=== PATIENT | male | born 1950 | race Caucasian/White ===

== ENCOUNTER 2016-11-23 08:28 | Inpatient (IN) | payer BC ==
[~2016-11-23 08:28] MED LIST: Lactated Ringers 1,000 ML IV SCH; Lidocaine 1%/Sod Bicarbonate in NS 8.4% 1 ML Syringe PRN; Sodium Chloride 0.9% 10 ML Syringe FLUSH PRN
--- NOTE | 2016-11-23 09:34 | PCM.PREANE ---
Preanesthetic Assessment - Procedure Proposed Procedure: Right Total Hip Arthroplasty - Anesthesia/Transfusion/Family Hx Anesthesia History: Prior Anesthesia Without Reaction Family History of Anesthesia Reaction: No Transfusion History: No Prior Transfusion(s) Intubation History: Unknown - Review of Systems General: No Symptoms Pulmonary: Shortness of Breath (with activity like 2 flights of stairs, METS< 4) Cardiovascular: No Symptoms Gastrointestinal: No symptoms Neurological: Numbness (left foot ) Other: Reports: None (obesity ) - Physical Assessment O2 Sat by Pulse Oximetry: 95 Respiratory Rate: 20 Vital Signs: Last Vital Signs Temp 36.9 C 11/23/16 08:30 Pulse Resp 20 11/23/16 08:30 BP 161/81 H 11/23/16 08:30 Pulse Ox 95 11/23/16 08:30 Weight: 140.16 kg ASA Class: 3 Mental Status: Alert & Oriented x3 Airway Class: Mallampati = 3 Dentition: Reports: Missing Tooth/Teeth (no teeth upper, teeth on bottom secure ) Thyro-Mental Finger Breadths: 3 Mouth Opening Finger Breadths: 4 ROM/Head Extension: Full - Lab Values: Laboratory Last Values MRSA (PCR) Negative 11/11/16 15:45 - Allergies Allergies/Adverse Reactions: Allergies Allergy/AdvReac Type Severity Reaction Status Date / Time No Known Allergies Allergy Verified 11/23/16 09:30 - Blood Blood Available: Yes Product(s) Available: PRBC (type and screen drawn, not yet back ) - Acknowledgements Anesthesia Type Planned: Spinal Pt an Appropriate Candidate for the Planned Anesthesia: Yes Alternatives and Risks of Anesthesia Discussed w Pt/Guardian: Yes Pt/Guardian Understands and Agrees with Anesthesia Plan: Yes PreAnesthesia Questionnaire HEENT History: Reports: Impaired Vision Cardiovascular History: Reports: High Cholesterol, Hypertension Respiratory History: Reports: None Gastrointestinal History: Reports: Colon Polyp, Other (See Below) Other Gastrointestinal History: hematochezia Genitourinary History: Reports: Renal Calculus [employer]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 Musculoskeletal History: Reports: Other (See Below) Other Musculoskeletal History: R knee pain, gouty arthritis Neurological History: Reports: None Psychiatric History: Reports: None Endocrine/Metabolic History: Reports: Obesity/BMI 30+ Hematologic History: Reports: None Immunologic History: Reports: None Oncologic (Cancer) History: Reports: None Dermatologic History: Reports: None - Past Surgical History Head Surgeries/Procedures: Reports: None HEENT Surgical History: Reports: Cataract Surgery GI Surgical History: Reports: Colonoscopy Female Surgical History: Male Surgical History: Reports: Ureteral Stent, Vasectomy Neurological Surgical History: Reports: None Musculoskeletal Surgical History: Reports: Other (See Below) Other Musculoskeletal Surgeries/Procedures:: elbow surgery Dermatological Surgical History: Reports: None - SUBSTANCE USE Smoking Status *Q: Former Smoker Days Per Week of Alcohol Use: 7 Number of Drinks Per Day: 3 Total Drinks Per Week: 21 Recreational Drug Use History: No - HOME MEDS Home Medications: Home Meds Aspirin [Ecotrin] 81 mg PO DAILY 11/20/16 [History] Chlorthalidone [Chlorthalidone] 25 mg PO DAILY 11/20/16 [History] Enalapril [Vasotec] 10 mg PO DAILY 11/20/16 [History] Meloxicam [Meloxicam] 15 mg PO DAILY 11/20/16 [History] - CURRENT (IN HOUSE) MEDS Current Meds: Current Medications Bisacodyl (Dulcolax) 5 mg PO DAILY PRN PRN Reason: Constipation Morphine Sulfate 8 mg/Epinephrine HCl 0.3 mg/Cefuroxime Sodium 750 mg/Ketorolac Tromethamine 30 mg/Sodium Chloride 27.9 ml 0 mg .XX ONETIME ONE Stop: 11/23/16 10:01 Cyclobenzaprine HCl (Flexeril) 10 mg PO TID PRN PRN Reason: Spasms Docusate Sodium (Colace) 100 mg PO BID [facility] Famotidine (Pepcid) 20 mg PO BID [facility] Lactated Ringer's (Ringers, Lactated) 1,000 mls @ 125 mls/hr IV ASDIRECTED [facility] Stop: 11/23/16 23:00 Cefazolin Sodium/Dextrose 2 gm (/ Premix) 50 mls @ 100 mls/hr IV Q8H [facility] Stop: 11/23/16 23:59 Lidocaine/Sodium Bicarbonate (Buffered Lidocaine 1% In Ns 8.4%) 0.25 ml .XX ONETIME PRN PRN Reason: Prior to IV Start Stop: 11/23/16 16:00 Magnesium Hydroxide (Milk Of Magnesia) 30 ml PO BID PRN PRN Reason: Constipation Morphine Sulfate (Morphine) 2 mg IVPUSH Q2H PRN PRN Reason: Breakthrough Pain Multivitamins (Thera) 1 each PO WITHBREAKFAST [facility] Naloxone HCl (Narcan) 0.1 mg IVPUSH Q5M PRN PRN Reason: Oversedation Stop: 11/23/16 12:16 Ondansetron HCl (Zofran) 4 mg IVPUSH Q6H PRN PRN Reason: Nausea/Vomiting Oxycodone/Acetaminophen (Percocet 325-5 Mg) 1 - 2 tab PO Q4H PRN PRN Reason: Pain Senna (Senna) 8.6 mg PO BID PRN PRN Reason: Constipation Sodium Chloride (Saline Flush) 10 ml FLUSH ASDIRECTED PRN PRN Reason: Keep Vein Open Stop: 11/23/16 16:00
[2016-11-23] MEDS ORDERED: ceFAZolin 1 GM Vial ONE ×2 (09:51→10:00)
[2016-11-23] MEDS ORDERED: Iodine/Sodium Iodide 2% Tincture 30 ML Bottle ONE (09:51)
[2016-11-23] MEDS ORDERED: Bupivacaine 0.25% 30 ML SDV ONE (09:51)
[2016-11-23] MEDS ORDERED: Propofol 200 MG/20 ML SDV ONE ×6 (09:59→13:51)
[2016-11-23] MEDS ORDERED: Lidocaine 1% 4 ML ONE (10:00)
[2016-11-23] MEDS ORDERED: Morphine 8 MG, EPINEPHrine 0.3 MG, Cefuroxime 750 MG, Ketorolac 30 MG, Sodium Chloride ... ONE ×5 (10:00)
[2016-11-23] MEDS ORDERED: Midazolam 1 MG/ML 2 ML SDV ONE ×2 (10:03→11:41)
[2016-11-23] MEDS ORDERED: Morphine PF 10 MG/10 ML SDV ONE (10:04)
[2016-11-23] MEDS ORDERED: Morphine 10 MG/ML Syringe ONE (10:04)
[2016-11-23] MEDS ORDERED: Lactated Ringers 1,000 ML ONE ×3 (11:10→12:42)
[2016-11-23] MEDS ORDERED: Ketamine 500 mg/10 ML MDV ONE (11:22)
[2016-11-23] MEDS ORDERED: Sennosides 8.6 MG Tab PO PRN (12:00)
[2016-11-23] MEDS ORDERED: Naloxone 0.4 MG/ML SDV IVPUSH PRN (12:00)
[2016-11-23] MEDS ORDERED: Cyclobenzaprine 10 MG Tab PO PRN (12:00)
[2016-11-23] MEDS ORDERED: Magnesium Hydroxide 400 MG/5 ML Susp 30 ML Cup PO PRN (12:00)
[2016-11-23] MEDS ORDERED: Morphine 2 MG/ML Syringe IVPUSH PRN (12:00)
[2016-11-23] MEDS ORDERED: Bisacodyl 5 MG Tab PO PRN (12:00)
[2016-11-23] MEDS ORDERED: Phenylephrine/Normal Saline 100 MCG/ML 10 ML Syringe ONE (12:28)
--- NOTE | 2016-11-23 13:24 | PCM.CONS ---
H&P History of Present Illness - General Date of Service: 11/23/16 Admit Problem/Dx: Admission Diagnosis/Problem Admission Diagnosis/Problem Osteoarthritis of hip Source of Information: Patient, Family, Old Records, Provider, RN Notes Reviewed , Significant Other History Limitations: Reports: Physical Impairment - History of Present Illness Initial Comments - Free Text/Narative: This is a 66-year-old, white male, with past medical history of HTN, HLD, OA and Morbid Obesity who underwent right total knee arthroplasty post operative day zero. Patient is currently nauseous. His pain is controlled. He denies any other acute issues. Medicine was consulted for postoperative care. - Related Data Allergies/Adverse Reactions: Allergies Allergy/AdvReac Type Severity Reaction Status Date / Time No Known Allergies Allergy Verified 11/23/16 09:30 Home Medications: Home Meds Aspirin [Ecotrin] 81 mg PO DAILY 11/20/16 [History] Chlorthalidone [Chlorthalidone] 25 mg PO DAILY 11/20/16 [History] Enalapril [Vasotec] 10 mg PO DAILY 11/20/16 [History] Meloxicam [Meloxicam] 15 mg PO DAILY 11/20/16 [History] Past Medical History HEENT History: Reports: Impaired Vision Cardiovascular History: Reports: High Cholesterol, Hypertension Respiratory History: Reports: None Gastrointestinal History: Reports: Colon Polyp, Other (See Below) Other Gastrointestinal History: hematochezia Genitourinary History: Reports: Renal Calculus 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 Musculoskeletal History: Reports: Other (See Below) Other Musculoskeletal History: R knee pain, gouty arthritis Neurological History: Reports: None Psychiatric History: Reports: None Endocrine/Metabolic History: Reports: Obesity/BMI 30+ Hematologic History: Reports: None Immunologic History: Reports: None Oncologic (Cancer) History: Reports: None Dermatologic History: Reports: None - Past Surgical History Head Surgeries/Procedures: Reports: None HEENT Surgical History: Reports: Cataract Surgery GI Surgical History: Reports: Colonoscopy Female Surgical History: Male Surgical History: Reports: Ureteral Stent, Vasectomy Neurological Surgical History: Reports: None Musculoskeletal Surgical History: Reports: Other (See Below) Other Musculoskeletal Surgeries/Procedures:: elbow surgery Dermatological Surgical History: Reports: None Social & Family History - Tobacco Use Smoking Status *Q: Former Smoker Used Tobacco, but Quit: Yes Month Tobacco Last Used: 1994 - Caffeine Use Caffeine Use: Reports: Coffee - Alcohol Use Days Per Week of Alcohol Use: 7 Number of Drinks Per Day: 3 Total Drinks Per Week: 21 - Recreational Drug Use Recreational Drug Use: No H&P Review of Systems - Review of Systems: Review Of Systems: See Below General: Denies: Fever, Chills, Malaise, Weakness, Fatigue HEENT: Reports: No Symptoms Pulmonary: Denies: Shortness of Breath, Wheezing, Pleuritic Chest Pain Cardiovascular: Denies: Chest Pain, Dyspnea on Exertion Gastrointestinal: Reports: Nausea. Denies: Abdominal Pain, Vomiting Genitourinary: Reports: Retention Musculoskeletal: Reports: No Symptoms Skin: Denies: Cyanosis, Rash, Erythema Psychiatric: Denies: Confusion, Depression, Anxiety, Hallucinations Neurological: Reports: Difficulty Walking, Gait Disturbance. Denies: Confusion , Dizziness, Weakness Hematologic/Lymphatic: Reports: No Symptoms Immunologic: Reports: No Symptoms Exam - Exam Exam: See Below - Vital Signs Vital Signs: Last Vital Signs Temp 36.9 C 11/23/16 08:30 Pulse Resp 20 11/23/16 09:41 BP 161/81 H 11/23/16 08:30 Pulse Ox 95 11/23/16 09:41 Weight: 140.16 kg - Exam Quality Assessment: No: Supplemental Oxygen General: Alert, Oriented, Cooperative, Other (Obese). No: Mild Distress HEENT: Conjunctiva Clear, EACs Clear, EOMI, Hearing Intact, Mucosa Moist & Nucla , Nares Patent, Normal Nasal Septum, Posterior Pharynx Clear, Pupils Reactive Neck: Supple, Trachea Midline, +2 Carotid Pulse wo Bruit, Full Range of Motion, Other (Short and thick) Lungs: Clear to Auscultation, Normal Respiratory Effort Cardiovascular: Regular Rate, Regular Rhythm Abdomen: Normal Bowel Sounds, Soft. No: Organomegaly, Tenderness (Male) Exam: Other (indwelling holland catheter) Rectal (Males) Exam: Deferred Back Exam: Decreased Range of Motion Extremities: Normal Inspection, Normal Pulses Peripheral Pulses: 2+: Posterior Tibial (L), Posterior Tibial (R), Dorsalis Pedis (L), Dorsalis Pedis (R) Skin: Warm, Dry, Intact Neuro Extensive - Mental Status: Oriented x3, Normal Cognition, Memory Intact Neuro Extensive - Motor, Sensory, Reflexes: CN II-XII Intact (limited but fairly intact), Abnormal Gait Psychiatric: Alert, Normal Affect, Normal Mood - Patient Data Lab Results Last 24 hrs: Laboratory Results - last 24 hr 11/23/16 11/23/16 Range/Units 08:54 08:54 PT 10.1 (8.0-13.0) SECONDS INR 0.93 APTT 31 (22-36) SECONDS Consult PN Assessment/Plan POD#: 0 Problem List Initiated/Reviewed/Updated: Yes Plan: Assessment: Acute: Post-Operative Care State - Stable - Continue to monitor for hemodynamic instability S/p Right Total Knee Arthroplasty - Stable - DVT and Pain Management as per primary team Hx/o Chronic Hip Pain 2/2 OA - Pain Management as per primary team Post Operative Urinary Retention - Received 4L LR in OR, output < 200 ml so far - Bumex 1mg IVP X1 now - Monitor urine output per protocol Post-Operative Nausea/Vomiting - PRN Anti-emisis - Scopolamine Patch - Benadryl IVP to augment if no relief Chronic: HTN HLD Obesity with BMI 39.9 Plan: He is clinically stable Routine AM labs Continue home meds PT/OT consult IS q2 awake Thank you for the opportunity to participate in the management of this patient. Requesting Provider: Dr. Jaimes Date Consult Requested: 11/23/16 Reason for Consult: Post-Operative Care Patient History Reviewed: Yes Admission H&P Reviewed: Yes Consult Result/Summary: Stable
--- NOTE | 2016-11-23 14:32 | PCM.POSTAN ---
POST ANESTHESIA ASSESSMENT - MENTAL STATUS Mental Status: alert - VITAL SIGNS Pulse Rate: 74 SaO2: 96 Resp Rate: 14 Blood Pressure: 132/72 Temperature: 37.0 C - RESPIRATORY Respiratory Status: respiratory rate WNL, airway patent, O2 saturation stable - CARDIOVASCULAR CV Status: pulse rate WNL, blood pressure stable - GASTROINTESTINAL GI Status: no symptoms - PAIN Pain Score: 0 - POST OP HYDRATION Hydration Status: adequate & stable
[2016-11-23] MEDS ORDERED: diphenhydrAMINE 50 MG/ML SDV IVPUSH PRN (14:33)
[2016-11-23] MEDS: Ondansetron 4 MG/2 ML SDV IVPUSH PRN (15:46)
[2016-11-23] MEDS ORDERED: Bumetanide 1 MG/4 ML MDV IVPUSH ONE (15:49)
--- NOTE | 2016-11-23 16:23 | CR ---
Pelvis and right hip: AP view of the pelvis was obtained as well as lateral view of the right hip. Comparison: No previous study. Recently placed right hip prosthesis is seen. Soft tissue air is noted from the surgical procedure. Underlying bony structures are intact. Moderate joint space narrowing is seen within the left hip. Mild disc space narrowing is noted within the visualized lumbar spine. Sacroiliac joints are within normal limits. Impression: 1. Recently placed right hip prosthesis. Degenerative change is seen with the left hip and lumbar spine. Diagnostic code #3
[2016-11-23] MEDS ORDERED: Scopolamine 1.5 MG Transdermal Patch TOP ONE (16:47)
[2016-11-23] MEDS: ceFAZolin 2 GM in Premix Bag 1 BAG IV SCH (17:17)
[2016-11-24] MEDS: Famotidine 20 MG Tab PO SCH ×3 (00:26→21:22)
[2016-11-24] MEDS: Docusate Sodium 100 MG Cap PO SCH ×3 (00:26→21:23)
[2016-11-24] MEDS: ceFAZolin 2 GM in Premix Bag 1 BAG IV SCH ×2 (01:49→10:30)
[2016-11-24] MEDS: Acetaminophen/oxyCODONE 325-5 MG Tab PO PRN ×5 (01:50→21:23)
[2016-11-24] MEDS: Multivitamins,Therapeutic Tab PO SCH (06:08)
--- NOTE | 2016-11-24 08:01 | PCM.CONSN ---
- General Info Date of Service: 11/24/16 Admission Dx/Problem (Free Text): Admission Diagnosis/Problem Admission Diagnosis/Problem Osteoarthritis of hip Subjective Update: Follow Up Functional Status: Reports: tolerating diet, ambulating, urinating, new symptoms (had vasovagal episode this am). Denies: pain controlled Pain Score: 9 - Review of Systems General: Denies: Fever, Weakness, Fatigue, Malaise, Chills HEENT: Reports: no symptoms Pulmonary: Denies: shortness of breath Cardiovascular: Denies: Chest Pain Gastrointestinal: Denies: Abdominal pain, Nausea, Vomiting Genitourinary: Reports: no symptoms Musculoskeletal: Reports: neck pain Neurological: Reports: Difficulty Walking, Gait Disturbance. Denies: Confusion , Weakness Psychiatric: Denies: depression, anxiety, agitation, hallucinations Systems Review Comment:: Patient became unresponsive in front of his family this am. His was head bobbing and look bewildered. His he was found hypotensive. I was nearby when it happened and was able to tend to him right away. - Patient Data Vitals - most recent: Last Vital Signs Temp 36.6 C 11/23/16 19:53 Pulse 78 11/24/16 05:19 Resp 18 11/24/16 06:59 BP 149/74 H 11/24/16 05:19 Pulse Ox 99 11/24/16 05:19 Weight - most recent: 141.209 kg I&O - last 24 hours: Intake & Output 11/23/16 11/24/16 11/24/16 22:59 06:59 14:59 Intake Total 1300 500 Output Total 150 2050 Balance 1150 -1550 Lab Results last 24 hrs: Laboratory Results - last 24 hr 11/23/16 11/23/16 11/24/16 Range/Units 08:54 08:54 06:06 WBC 11.05 H (4.23-9.07) K/mm3 RBC 5.03 (4.63-6.08) M/mm3 Hgb 15.0 (13.7-17.5) gm/L Hct 44.3 (40.1-51.0) % MCV 88.1 (79.0-92.2) fl MCH 29.8 (25.7-32.2) pg MCHC 33.9 (32.2-35.5) g/dl RDW Std Deviation 42.7 (35.1-43.9) fL Plt Count 278 (163-337) K/mm3 MPV 10.0 (9.4-12.3) fl Neut % (Auto) 75.2 H (34.0-67.9) % Lymph % (Auto) 13.9 L (21.8-53.1) % Monroe % (Auto) 9.6 (5.3-12.2) % Eos % (Auto) 0.7 L (0.8-7.0) Baso % (Auto) 0.3 (0.1-1.2) % Neut # (Auto) 8.31 H (1.78-5.38) K/mm3 Lymph # (Auto) 1.54 (1.32-3.57) K/mm3 Monroe # (Auto) 1.06 H (0.30-0.82) K/mm3 Eos # (Auto) 0.08 (0.04-0.54) K/mm3 Baso # (Auto) 0.03 (0.01-0.08) K/mm3 PT 10.1 (8.0-13.0) SECONDS INR 0.93 APTT 31 (22-36) SECONDS Sodium (136-145) mEq/L Potassium (3.5-5.1) mEq/L Chloride (98-107) mEq/L Carbon Dioxide (21-32) mEq/L Anion Gap (5-15) BUN (7-18) mg/dL Creatinine (0.7-1.3) mg/dL Est Cr Clr Drug Dosing mL/min Estimated GFR (MDRD) (>60) mL/min BUN/Creatinine Ratio (14-18) Glucose (80-115) mg/dL Calcium (8.5-10.1) mg/dL Total Bilirubin (0.2-1.0) mg/dL AST (15-37) U/L ALT (16-63) U/L Alkaline Phosphatase (46-116) U/L Total Protein (6.4-8.2) g/dl Albumin (3.4-5.0) g/dl Globulin gm/dL Albumin/Globulin Ratio (1-2) 11/24/ Range/Units 06:06 WBC (4.23-9.07) K/mm3 RBC (4.63-6.08) M/mm3 Hgb (13.7-17.5) gm/L Hct (40.1-51.0) % MCV (79.0-92.2) fl MCH (25.7-32.2) pg MCHC (32.2-35.5) g/dl RDW Std Deviation (35.1-43.9) fL Plt Count (163-337) K/mm3 MPV (9.4-12.3) fl Neut % (Auto) (34.0-67.9) % Lymph % (Auto) (21.8-53.1) % Monroe % (Auto) (5.3-12.2) % Eos % (Auto) (0.8-7.0) Baso % (Auto) (0.1-1.2) % Neut # (Auto) (1.78-5.38) K/mm3 Lymph # (Auto) (1.32-3.57) K/mm3 Monroe # (Auto) (0.30-0.82) K/mm3 Eos # (Auto) (0.04-0.54) K/mm3 Baso # (Auto) (0.01-0.08) K/mm3 PT (8.0-13.0) SECONDS INR APTT (22-36) SECONDS Sodium 138 (136-145) mEq/L Potassium 3.9 (3.5-5.1) mEq/L Chloride 100 (98-107) mEq/L Carbon Dioxide 31 (21-32) mEq/L Anion Gap 10.9 (5-15) BUN 16 (7-18) mg/dL Creatinine 1.0 (0.7-1.3) mg/dL Est Cr Clr Drug Dosing 86.16 mL/min Estimated GFR (MDRD) > 60 (>60) mL/min BUN/Creatinine Ratio 16.0 (14-18) Glucose 145 H (80-115) mg/dL Calcium 8.7 (8.5-10.1) mg/dL Total Bilirubin 0.7 (0.2-1.0) mg/dL AST 47 H (15-37) U/L ALT 35 (16-63) U/L Alkaline Phosphatase 90 (46-116) U/L Total Protein 7.0 (6.4-8.2) g/dl Albumin 3.3 L (3.4-5.0) g/dl Globulin 3.7 gm/dL Albumin/Globulin Ratio 0.9 L (1-2) Med Orders - Current: Current Medications Aspirin (Ecotrin) 325 mg PO BID [facility] Bisacodyl (Dulcolax) 5 mg PO DAILY PRN PRN Reason: Constipation Cyclobenzaprine HCl (Flexeril) 10 mg PO TID PRN PRN Reason: Spasms Docusate Sodium (Colace) 100 mg PO BID [facility] Last Admin: 11/24/16 00:26 Dose: Not Given Enalapril Maleate (Vasotec) 10 mg PO DAILY [facility] Famotidine (Pepcid) 20 mg PO BID [facility] Last Admin: 11/24/16 00:26 Dose: Not Given Cefazolin Sodium/Dextrose 2 gm (/ Premix) 50 mls @ 100 mls/hr IV Q8H [facility] Stop: 11/24/16 10:29 Last Admin: 11/24/16 01:49 Dose: 100 mls/hr Magnesium Hydroxide (Milk Of Magnesia) 30 ml PO BID PRN PRN Reason: Constipation Miscellaneous Information (Remove Patch) 1 ea TRDERM ONETIME [facility] Morphine Sulfate (Morphine) 2 mg IVPUSH Q2H PRN PRN Reason: Breakthrough Pain Multivitamins (Thera) 1 each PO WITHBREAKFAST [facility] Last Admin: 11/24/16 06:08 Dose: 1 each Ondansetron HCl (Zofran) 4 mg IVPUSH Q6H PRN PRN Reason: Nausea/Vomiting Last Admin: 11/23/16 15:46 Dose: 4 mg Oxycodone/Acetaminophen (Percocet 325-5 Mg) 1 - 2 tab PO Q4H PRN PRN Reason: Pain Last Admin: 11/24/16 06:08 Dose: 2 tab Chlorthalidone 25 Mg 0 each PO DAILY [facility] Senna (Senna) 8.6 mg PO BID PRN PRN Reason: Constipation Discontinued Medications Bumetanide (Bumex) 1 mg IVPUSH ONETIME ONE Stop: 11/23/16 15:50 Last Admin: 11/23/16 16:11 Dose: 1 mg Bupivacaine HCl (Marcaine 0.25%) Confirm Administered Dose 30 ml .ROUTE .STK- MED ONE Stop: 11/23/16 09:52 Last Admin: 11/23/16 13:35 Dose: 30 ml Cefazolin Sodium (Ancef) Confirm Administered Dose 3 gm .ROUTE .STK-MED ONE Stop: 11/23/16 10:01 Cefazolin Sodium (Ancef) Confirm Administered Dose 2 gm .ROUTE .ST-MED ONE Stop: 11/23/16 09:52 Last Admin: 11/23/16 13:34 Dose: 2 gm Morphine Sulfate 8 mg/Epinephrine HCl 0.3 mg/Cefuroxime Sodium 750 mg/Ketorolac Tromethamine 30 mg/Sodium Chloride 27.9 ml 0 mg .XX ONETIME ONE Stop: 11/23/16 10:01 Last Admin: 11/23/16 13:35 Dose: 788.3 mg Diphenhydramine HCl (Benadryl) 25 mg IVPUSH Q6H PRN PRN Reason: pruritis Stop: 11/23/16 23:00 Last Admin: 11/23/16 17:03 Dose: 25 mg Lactated Ringer's (Ringers, Lactated) 1,000 mls @ 125 mls/hr IV ASDIRECTED [facility] Stop: 11/23/16 23:00 Last Admin: 11/23/16 08:50 Dose: 125 mls/hr Lidocaine HCl (Xylocaine-Mpf 1%) Confirm Administered Dose 4 mls @ as directed .ROUTE .ST-MED ONE Stop: 11/23/16 10:01 Lactated Ringer's (Ringers, Lactated) Confirm Administered Dose 1,000 mls @ as directed .ROUTE .ST-MED ONE Stop: 11/23/16 11:11 Lactated Ringer's (Ringers, Lactated) Confirm Administered Dose 1,000 mls @ as directed .ROUTE .STK-MED ONE Stop: 11/23/16 11:35 Lactated Ringer's (Ringers, Lactated) Confirm Administered Dose 1,000 mls @ as directed .ROUTE .ST-MED ONE Stop: 11/23/16 12:43 Iodine (Iodine 2% Mild Tincture) Confirm Administered Dose 30 ml .ROUTE .STK- MED ONE Stop: 11/23/16 09:52 Last Admin: 11/23/16 13:30 Dose: 30 ml Ketamine HCl (Ketalar) Confirm Administered Dose 500 mg .ROUTE .STK-MED ONE Stop: 11/23/16 11:23 Lidocaine/Sodium Bicarbonate (Buffered Lidocaine 1% In Ns 8.4%) 0.25 ml .XX ONETIME PRN PRN Reason: Prior to IV Start Stop: 11/23/16 16:00 Last Admin: 11/23/16 08:49 Dose: 0.25 ml Midazolam HCl (Versed 1 Mg/Ml) Confirm Administered Dose 2 mg .ROUTE .STK-MED ONE Stop: 11/23/16 10:04 Midazolam HCl (Versed 1 Mg/Ml) Confirm Administered Dose 2 mg .ROUTE .STK-MED ONE Stop: 11/23/16 11:42 Morphine Sulfate (Morphine) Confirm Administered Dose 10 mg .ROUTE .STK-MED ONE Stop: 11/23/16 10:05 Morphine Sulfate (Duramorph Pf) Confirm Administered Dose 10 mg .ROUTE .STK-MED ONE Stop: 11/23/16 10:05 Naloxone HCl (Narcan) 0.1 mg IVPUSH Q5M PRN PRN Reason: Oversedation Stop: 11/23/16 12:16 Phenylephrine HCl (Phenylephrine In Ns 100 Mcg/Ml) Confirm Administered Dose 1 mg .ROUTE .STK-MED ONE Stop: 11/23/16 12:29 Propofol (Diprivan 20 Ml) Confirm Administered Dose 600 mg .ROUTE .STK-MED ONE Stop: 11/23/16 10:00 Propofol (Diprivan 20 Ml) Confirm Administered Dose 400 mg .ROUTE .STK-MED ONE Stop: 11/23/16 12:08 Propofol (Diprivan 20 Ml) Confirm Administered Dose 200 mg .ROUTE .STK-MED ONE Stop: 11/23/16 12:41 Propofol (Diprivan 20 Ml) Confirm Administered Dose 200 mg .ROUTE .STK-MED ONE Stop: 11/23/16 13:09 Propofol (Diprivan 20 Ml) Confirm Administered Dose 200 mg .ROUTE .STK-MED ONE Stop: 11/23/16 13:10 Propofol (Diprivan 20 Ml) Confirm Administered Dose 200 mg .ROUTE .STK-MED ONE Stop: 11/23/16 13:52 Scopolamine (Transderm-Scop) 1.5 mg TOP ONETIME ONE Stop: 11/23/16 16:48 Last Admin: 11/23/16 17:07 Dose: 1.5 mg Sodium Chloride (Saline Flush) 10 ml FLUSH ASDIRECTED PRN PRN Reason: Keep Vein Open Stop: 11/23/16 16:00 Tranexamic Acid (Cyklokapron) Confirm Administered Dose 1,000 mg .ROUTE .STK- MED ONE Stop: 11/23/16 09:52 Last Admin: 11/23/16 13:37 Dose: 1,000 mg - Exam General: alert, oriented, cooperative, no acute distress HEENT: Pupils equal, Pupils reactive, EOMI, Mucous membr. moist/pink Neck: supple, trachea midline, no JVD Lungs: Normal respiratory effort, Decreased breath sounds Cardiovascular: Regular Rate, Regular Rhythm GI/Abdominal Exam: Normal Bowel Sounds, Non-Tender, No Organomegaly, No Distention (Male) Exam: Deferred Back Exam: Normal Inspection, Decreased Range of Motion Extremities: Normal Inspection, Normal Range of Motion, Non-Tender, No Pedal Edema Peripheral Pulses: 2+: Dorsalis Pedis (L), Dorsalis Pedis (R) Skin: warm, dry, intact Neurological: no new focal deficit Psy/Mental Status: alert, normal affect, normal mood Consult PN Assessment/Plan POD#: 1 Problem List Initiated/Reviewed/Updated: Yes My Orders last 24 hours: My Active Orders 11/26/16 17:00 Remove Patch 1 ea [facility] ONETIME Plan: Assessment: Acute: Vasovagal Syncope - BP low, likely from BP meds and narcotic side effects - NS 500 ml X1 - Also check for EKG, CXR, Troponin and H/H Post Operative Hypotension - He was somewhat a difficult case in OR - Lost almost a liter of blood - He need volume resuscitation as above S/p Right Total Knee Arthroplasty - Stable - DVT and Pain Management as per primary team Hx/o Chronic Hip Pain 2/2 OA - Pain Management as per primary team Resolved: Post Operative Urinary Retention - Received 4L LR in OR, output < 200 ml so far - Bumex 1mg IVP X1 now, had good urine output - Monitor urine output per protocol Post-Operative Nausea/Vomiting - PRN Anti-emisis - Scopolamine Patch and Benadryl IVP x 1 Chronic: HTN HLD Obesity with BMI 39.9 Plan: He is hypotensive Routine AM labs Continue home meds Continue PT/OT IS q2 awake Additional orders as above Patient is not hemodynamically stable at this point. He needs volume expansion. Will monitor him closely. From the Hospitalist stand point, we recommend against discharging him today.
[2016-11-24] MEDS: Aspirin 325 MG Tab.EC PO SCH ×2 (08:06→21:23)
[2016-11-24] MEDS ORDERED: Sodium Chloride 0.9% 500 ML IV ONE (12:36)
--- NOTE | 2016-11-24 12:47 | CR ---
Chest: Portable view of the chest was obtained. Comparison: No previous study. Heart size and mediastinum are within normal limits for portable technique. Lungs are clear. Bony structures are grossly intact. Impression: 1. Nothing acute is identified on portable chest x-ray. Diagnostic code #1
--- NOTE | 2016-11-24 13:21 | PCM.SURGPN ---
- General Info Date of Service: 11/24/16 POD#: 1 Functional Status: Reports: tolerating diet, ambulating, urinating - Review of Systems Musculoskeletal: Reports: other (The pt did well with therapies this morning.) - Patient Data Vitals - most recent: Last Vital Signs Temp 97.9 F 11/23/16 19:53 Pulse 78 11/24/16 05:19 Resp 12 11/24/16 10:00 BP 145/82 H 11/24/16 08:10 Pulse Ox 96 11/24/16 10:00 Weight - most recent: 311 lb 5 oz I&O - last 24 hours: Intake & Output 11/23/16 11/24/16 11/24/16 22:59 06:59 14:59 Intake Total 1300 500 360 Output Total 150 2050 Balance 1150 -1550 360 Lab Results last 24 hrs: Laboratory Results - last 24 hr 11/24/16 11/24/16 11/24/16 Range/Units 06:06 06:06 12:48 WBC 11.05 H (4.23-9.07) K/mm3 RBC 5.03 (4.63-6.08) M/mm3 Hgb 15.0 (13.7-17.5) gm/L Hct 44.3 (40.1-51.0) % MCV 88.1 (79.0-92.2) fl MCH 29.8 (25.7-32.2) pg MCHC 33.9 (32.2-35.5) g/dl RDW Std Deviation 42.7 (35.1-43.9) fL Plt Count 278 (163-337) K/mm3 MPV 10.0 (9.4-12.3) fl Neut % (Auto) 75.2 H (34.0-67.9) % Lymph % (Auto) 13.9 L (21.8-53.1) % Woods % (Auto) 9.6 (5.3-12.2) % Eos % (Auto) 0.7 L (0.8-7.0) Baso % (Auto) 0.3 (0.1-1.2) % Neut # (Auto) 8.31 H (1.78-5.38) K/mm3 Lymph # (Auto) 1.54 (1.32-3.57) K/mm3 Woods # (Auto) 1.06 H (0.30-0.82) K/mm3 Eos # (Auto) 0.08 (0.04-0.54) K/mm3 Baso # (Auto) 0.03 (0.01-0.08) K/mm3 Sodium 138 (136-145) mEq/L Potassium 3.9 (3.5-5.1) mEq/L Chloride 100 (98-107) mEq/L Carbon Dioxide 31 (21-32) mEq/L Anion Gap 10.9 (5-15) BUN 16 (7-18) mg/dL Creatinine 1.0 (0.7-1.3) mg/dL Est Cr Clr Drug Dosing 86.16 mL/min Estimated GFR (MDRD) > 60 (>60) mL/min BUN/Creatinine Ratio 16.0 (14-18) Glucose 145 H (80-115) mg/dL POC Glucose 177 H (80-115) mg/dL Calcium 8.7 (8.5-10.1) mg/dL Total Bilirubin 0.7 (0.2-1.0) mg/dL AST 47 H (15-37) U/L ALT 35 (16-63) U/L Alkaline Phosphatase 90 (46-116) U/L Total Protein 7.0 (6.4-8.2) g/dl Albumin 3.3 L (3.4-5.0) g/dl Globulin 3.7 gm/dL Albumin/Globulin Ratio 0.9 L (1-2) /18/17 Range/Units 12:50 WBC (4.23-9.07) K/mm3 RBC (4.63-6.08) M/mm3 Hgb 13.8 (13.7-17.5) gm/L Hct (40.1-51.0) % MCV (79.0-92.2) fl MCH (25.7-32.2) pg MCHC (32.2-35.5) g/dl RDW Std Deviation (35.1-43.9) fL Plt Count (163-337) K/mm3 MPV (9.4-12.3) fl Neut % (Auto) (34.0-67.9) % Lymph % (Auto) (21.8-53.1) % Woods % (Auto) (5.3-12.2) % Eos % (Auto) (0.8-7.0) Baso % (Auto) (0.1-1.2) % Neut # (Auto) (1.78-5.38) K/mm3 Lymph # (Auto) (1.32-3.57) K/mm3 Woods # (Auto) (0.30-0.82) K/mm3 Eos # (Auto) (0.04-0.54) K/mm3 Baso # (Auto) (0.01-0.08) K/mm3 Sodium (136-145) mEq/L Potassium (3.5-5.1) mEq/L Chloride (98-107) mEq/L Carbon Dioxide (21-32) mEq/L Anion Gap (5-15) BUN (7-18) mg/dL Creatinine (0.7-1.3) mg/dL Est Cr Clr Drug Dosing mL/min Estimated GFR (MDRD) (>60) mL/min BUN/Creatinine Ratio (14-18) Glucose (80-115) mg/dL POC Glucose (80-115) mg/dL Calcium (8.5-10.1) mg/dL Total Bilirubin (0.2-1.0) mg/dL AST (15-37) U/L ALT (16-63) U/L Alkaline Phosphatase (46-116) U/L Total Protein (6.4-8.2) g/dl Albumin (3.4-5.0) g/dl Globulin gm/dL Albumin/Globulin Ratio (1-2) Med Orders - Current: Current Medications Aspirin (Ecotrin) 325 mg PO BID COUNT INCLUDES THE [facility] Last Admin: 11/24/16 08:06 Dose: 325 mg Bisacodyl (Dulcolax) 5 mg PO DAILY PRN PRN Reason: Constipation Last Admin: 11/24/16 08:06 Dose: 5 mg Cyclobenzaprine HCl (Flexeril) 10 mg PO TID PRN PRN Reason: Spasms Docusate Sodium (Colace) 100 mg PO BID COUNT INCLUDES THE [facility] Last Admin: 11/24/16 08:06 Dose: 100 mg Enalapril Maleate (Vasotec) 10 mg PO DAILY COUNT INCLUDES THE [facility] Last Admin: 11/24/16 08:10 Dose: 10 mg Famotidine (Pepcid) 20 mg PO BID COUNT INCLUDES THE [facility] Last Admin: 11/24/16 08:09 Dose: 20 mg Magnesium Hydroxide (Milk Of Magnesia) 30 ml PO BID PRN PRN Reason: Constipation Miscellaneous Information (Remove Patch) 1 ea TRDERM ONETIME COUNT INCLUDES THE [facility] Morphine Sulfate (Morphine) 2 mg IVPUSH Q2H PRN PRN Reason: Breakthrough Pain Multivitamins (Thera) 1 each PO WITHBREAKFAST COUNT INCLUDES THE [facility] Last Admin: 11/24/16 06:08 Dose: 1 each Ondansetron HCl (Zofran) 4 mg IVPUSH Q6H PRN PRN Reason: Nausea/Vomiting Last Admin: 11/23/16 15:46 Dose: 4 mg Oxycodone/Acetaminophen (Percocet 325-5 Mg) 1 - 2 tab PO Q4H PRN PRN Reason: Pain Last Admin: 11/24/16 10:30 Dose: 2 tab Chlorthalidone 25 Mg 0 each PO DAILY COUNT INCLUDES THE [facility] Last Admin: 11/24/16 08:10 Dose: Not Given Senna (Senna) 8.6 mg PO BID PRN PRN Reason: Constipation Discontinued Medications Bumetanide (Bumex) 1 mg IVPUSH ONETIME ONE Stop: 11/23/16 15:50 Last Admin: 11/23/16 16:11 Dose: 1 mg Bupivacaine HCl (Marcaine 0.25%) Confirm Administered Dose 30 ml .ROUTE .STK- MED ONE Stop: 11/23/16 09:52 Last Admin: 11/23/16 13:35 Dose: 30 ml Cefazolin Sodium (Ancef) Confirm Administered Dose 3 gm .ROUTE .STK-MED ONE Stop: 11/23/16 10:01 Cefazolin Sodium (Ancef) Confirm Administered Dose 2 gm .ROUTE .STK-MED ONE Stop: 11/23/16 09:52 Last Admin: 11/23/16 13:34 Dose: 2 gm Morphine Sulfate 8 mg/Epinephrine HCl 0.3 mg/Cefuroxime Sodium 750 mg/Ketorolac Tromethamine 30 mg/Sodium Chloride 27.9 ml 0 mg .XX ONETIME ONE Stop: 11/23/16 10:01 Last Admin: 11/23/16 13:35 Dose: 788.3 mg Diphenhydramine HCl (Benadryl) 25 mg IVPUSH Q6H PRN PRN Reason: pruritis Stop: 11/23/16 23:00 Last Admin: 11/23/16 17:03 Dose: 25 mg Lactated Ringer's (Ringers, Lactated) 1,000 mls @ 125 mls/hr IV ASDIRECTED COUNT INCLUDES THE [facility] Stop: 11/23/16 23:00 Last Admin: 11/23/16 08:50 Dose: 125 mls/hr Cefazolin Sodium/Dextrose 2 gm (/ Premix) 50 mls @ 100 mls/hr IV Q8H COUNT INCLUDES THE [facility] Stop: 11/24/16 10:29 Last Admin: 11/24/16 10:30 Dose: 100 mls/hr Lidocaine HCl (Xylocaine-Mpf 1%) Confirm Administered Dose 4 mls @ as directed .ROUTE .STK-MED ONE Stop: 11/23/16 10:01 Lactated Ringer's (Ringers, Lactated) Confirm Administered Dose 1,000 mls @ as directed .ROUTE .STK-MED ONE Stop: 11/23/16 11:11 Lactated Ringer's (Ringers, Lactated) Confirm Administered Dose 1,000 mls @ as directed .ROUTE .STK-MED ONE Stop: 11/23/16 11:35 Lactated Ringer's (Ringers, Lactated) Confirm Administered Dose 1,000 mls @ as directed .ROUTE .STK-MED ONE Stop: 11/23/16 12:43 Sodium Chloride (Normal Saline) 500 mls @ 999 mls/hr IV .BOLUS ONE Stop: 11/24/16 13:06 Last Admin: 11/24/16 12:51 Dose: 999 mls/hr Iodine (Iodine 2% Mild Tincture) Confirm Administered Dose 30 ml .ROUTE .STK- MED ONE Stop: 11/23/16 09:52 Last Admin: 11/23/16 13:30 Dose: 30 ml Ketamine HCl (Ketalar) Confirm Administered Dose 500 mg .ROUTE .STK-MED ONE Stop: 11/23/16 11:23 Lidocaine/Sodium Bicarbonate (Buffered Lidocaine 1% In Ns 8.4%) 0.25 ml .XX ONETIME PRN PRN Reason: Prior to IV Start Stop: 11/23/16 16:00 Last Admin: 11/23/16 08:49 Dose: 0.25 ml Midazolam HCl (Versed 1 Mg/Ml) Confirm Administered Dose 2 mg .ROUTE .STK-MED ONE Stop: 11/23/16 10:04 Midazolam HCl (Versed 1 Mg/Ml) Confirm Administered Dose 2 mg .ROUTE .STK-MED ONE Stop: 11/23/16 11:42 Morphine Sulfate (Morphine) Confirm Administered Dose 10 mg .ROUTE .STK-MED ONE Stop: 11/23/16 10:05 Morphine Sulfate (Duramorph Pf) Confirm Administered Dose 10 mg .ROUTE .STK-MED ONE Stop: 11/23/16 10:05 Naloxone HCl (Narcan) 0.1 mg IVPUSH Q5M PRN PRN Reason: Oversedation Stop: 11/23/16 12:16 Phenylephrine HCl (Phenylephrine In Ns 100 Mcg/Ml) Confirm Administered Dose 1 mg .ROUTE .STK-MED ONE Stop: 11/23/16 12:29 Propofol (Diprivan 20 Ml) Confirm Administered Dose 600 mg .ROUTE .STK-MED ONE Stop: 11/23/16 10:00 Propofol (Diprivan 20 Ml) Confirm Administered Dose 400 mg .ROUTE .STK-MED ONE Stop: 11/23/16 12:08 Propofol (Diprivan 20 Ml) Confirm Administered Dose 200 mg .ROUTE .STK-MED ONE Stop: 11/23/16 12:41 Propofol (Diprivan 20 Ml) Confirm Administered Dose 200 mg .ROUTE .STK-MED ONE Stop: 11/23/16 13:09 Propofol (Diprivan 20 Ml) Confirm Administered Dose 200 mg .ROUTE .STK-MED ONE Stop: 11/23/16 13:10 Propofol (Diprivan 20 Ml) Confirm Administered Dose 200 mg .ROUTE .STK-MED ONE Stop: 11/23/16 13:52 Scopolamine (Transderm-Scop) 1.5 mg TOP ONETIME ONE Stop: 11/23/16 16:48 Last Admin: 11/23/16 17:07 Dose: 1.5 mg Sodium Chloride (Saline Flush) 10 ml FLUSH ASDIRECTED PRN PRN Reason: Keep Vein Open Stop: 11/23/16 16:00 Tranexamic Acid (Cyklokapron) Confirm Administered Dose 1,000 mg .ROUTE .STK- MED ONE Stop: 11/23/16 09:52 Last Admin: 11/23/16 13:37 Dose: 1,000 mg - Exam Wound/Incisions: dressing dry and intact General: alert, cooperative, no acute distress Lungs: Normal respiratory effort Extremities: Other (NVS intact for BLE. Torsten's negative. Right thigh soft.) - Problem List Review Problem List Initiated/Reviewed/Updated: Yes - My Orders Last 24 Hours: Active Orders 24 hr Category Date Time Status Patient Status [ADT] Routine ADT 11/24/16 12:28 Active Ambulate [RC] 08,11,17 Care 11/23/16 22:54 Active Communication Order [RC] ASDIRECTED Care 11/23/16 14:33 Active EKG 12 Lead [EKG Documentation Completion] [RC] STAT Care 11/24/16 12:25 Active Notify Provider [RC] ASDIRECTED Care 11/23/16 14:33 Active Regular Diet [DIET] Diet 11/23/16 Dinner Active TROPONIN I [CHEM] Stat Lab 11/24/16 12:24 Ordered Aspirin [Ecotrin] Med 11/24/16 09:00 Active 325 mg PO BID Docusate Sodium [Colace] Med 11/23/16 21:00 Active 100 mg PO BID Enalapril [Vasotec] Med 11/24/16 09:00 Active 10 mg PO DAILY Famotidine [Pepcid] Med 11/23/16 21:00 Active 20 mg PO BID Multivitamins,Therapeutic [Thera] Med 11/24/16 07:00 Active 1 each PO WITHBREAKFAST Patient's Own Medication [Ptom] Med 11/24/16 09:00 Active 0 each PO DAILY Remove Patch Med 11/26/16 17:00 Active 1 ea TRDERM ONETIME Pulse Oximetry Continuous Monitoring [OM.PC] Routine Oth 11/23/16 14:35 Active Medication Orders Aspirin (Ecotrin) 325 mg PO BID COUNT INCLUDES THE [facility] Last Admin: 11/24/16 08:06 Dose: 325 mg Bisacodyl (Dulcolax) 5 mg PO DAILY PRN PRN Reason: Constipation Last Admin: 11/24/16 08:06 Dose: 5 mg Cyclobenzaprine HCl (Flexeril) 10 mg PO TID PRN PRN Reason: Spasms Docusate Sodium (Colace) 100 mg PO BID COUNT INCLUDES THE [facility] Last Admin: 11/24/16 08:06 Dose: 100 mg Admin: 11/24/16 00:26 Dose: Not Given Enalapril Maleate (Vasotec) 10 mg PO DAILY COUNT INCLUDES THE [facility] Last Admin: 11/24/16 08:10 Dose: 10 mg Famotidine (Pepcid) 20 mg PO BID COUNT INCLUDES [facility] Last Admin: 11/24/16 08:09 Dose: 20 mg Admin: 11/24/16 00:26 Dose: Not Given Magnesium Hydroxide (Milk Of Magnesia) 30 ml PO BID PRN PRN Reason: Constipation Miscellaneous Information (Remove Patch) 1 ea TRDERM ONETIME COUNT INCLUDES THE [facility] Morphine Sulfate (Morphine) 2 mg IVPUSH Q2H PRN PRN Reason: Breakthrough Pain Multivitamins (Thera) 1 each PO WITHBREAKFAST COUNT INCLUDES THE [facility] Last Admin: 11/24/16 06:08 Dose: 1 each Ondansetron HCl (Zofran) 4 mg IVPUSH Q6H PRN PRN Reason: Nausea/Vomiting Last Admin: 11/23/16 15:46 Dose: 4 mg Oxycodone/Acetaminophen (Percocet 325-5 Mg) 1 - 2 tab PO Q4H PRN PRN Reason: Pain Last Admin: 11/24/16 10:30 Dose: 2 tab Admin: 11/24/16 06:08 Dose: 2 tab Admin: 11/24/16 01:50 Dose: 2 tab Chlorthalidone 25 Mg 0 each PO DAILY COUNT INCLUDES THE [facility] Last Admin: 11/24/16 08:10 Dose: Senna (Senna) 8.6 mg PO BID PRN PRN Reason: Constipation - Assessment Assessment (Free Text/Narrative):: POD#1 - right NILESH - Plan Plan (Free Text/Narrative):: 1. The pt will remain in Hospital overnight for continued monitoring due to possible vasovagal episode this afternoon. 2. Further orders per Hospitalist service. 3. Hgb 15.0 today. 4. 325mg ASA BID, TEDs, mobility, SCDs. The pt's case was discussed with Dr. Jaimes today.
[2016-11-25] MEDS: Acetaminophen/oxyCODONE 325-5 MG Tab PO PRN ×2 (02:27→06:37)
[2016-11-25] MEDS: Multivitamins,Therapeutic Tab PO SCH (06:37)
--- NOTE | 2016-11-25 07:12 | PCM.CONSN ---
- General Info Date of Service: 11/25/16 Admission Dx/Problem (Free Text): Admission Diagnosis/Problem Admission Diagnosis/Problem Osteoarthritis of hip Subjective Update: Follow Up Functional Status: Reports: Pain Controlled, Tolerating Diet, Ambulating, Urinating. Denies: New Symptoms - Review of Systems General: Denies: Fever, Weakness, Fatigue, Malaise, Chills HEENT: Reports: No Symptoms Pulmonary: Denies: Shortness of Breath Cardiovascular: Denies: Chest Pain Gastrointestinal: Denies: Abdominal Pain, Diarrhea, Nausea, Vomiting Genitourinary: Reports: No Symptoms Musculoskeletal: Reports: No Symptoms Skin: Denies: Cyanosis Neurological: Reports: Difficulty Walking, Gait Disturbance. Denies: Confusion , Weakness Psychiatric: Denies: Depression, Anxiety, Agitation, Hallucinations Systems Review Comment:: No overnight issues. No acute issues. He had an episode of brief nausea this morning but has since resolved after medicated with anti-emesis. - Patient Data Vitals - most recent: Last Vital Signs Temp 36.3 C 11/25/16 04:20 Pulse 76 11/25/16 04:20 Resp 14 11/25/16 04:20 BP 119/63 11/25/16 04:20 Pulse Ox 96 11/25/16 04:20 Weight - most recent: 144.515 kg I&O - last 24 hours: Intake & Output 11/24/16 11/25/16 11/25/16 22:59 06:59 14:59 Intake Total 1390 325 Output Total 100 1050 Balance 1290 -725 Lab Results last 24 hrs: Laboratory Results - last 24 hr 11/24/16 11/24/16 11/24/16 Range/Units 06:06 12:48 12:50 Hgb (13.7-17.5) gm/L Sodium 138 (136-145) mEq/L Potassium 3.9 (3.5-5.1) mEq/L Chloride 100 (98-107) mEq/L Carbon Dioxide 31 (21-32) mEq/L Anion Gap 10.9 (5-15) BUN 16 (7-18) mg/dL Creatinine 1.0 (0.7-1.3) mg/dL Est Cr Clr Drug Dosing 86.16 mL/min Estimated GFR (MDRD) > 60 (>60) mL/min BUN/Creatinine Ratio 16.0 (14-18) Glucose 145 H (80-115) mg/dL POC Glucose 177 H (80-115) mg/dL Calcium 8.7 (8.5-10.1) mg/dL Total Bilirubin 0.7 (0.2-1.0) mg/dL AST 47 H (15-37) U/L ALT 35 (16-63) U/L Alkaline Phosphatase 90 (46-116) U/L Troponin I < 0.017 (0.00-0.056) ng/mL Total Protein 7.0 (6.4-8.2) g/dl Albumin 3.3 L (3.4-5.0) g/dl Globulin 3.7 gm/dL Albumin/Globulin Ratio 0.9 L (1-2) 11/24/16 Range/Units 12:50 Hgb 13.8 (13.7-17.5) gm/L Sodium (136-145) mEq/L Potassium (3.5-5.1) mEq/L Chloride (98-107) mEq/L Carbon Dioxide (21-32) mEq/L Anion Gap (5-15) BUN (7-18) mg/dL Creatinine (0.7-1.3) mg/dL Est Cr Clr Drug Dosing mL/min Estimated GFR (MDRD) (>60) mL/min BUN/Creatinine Ratio (14-18) Glucose (80-115) mg/dL POC Glucose (80-115) mg/dL Calcium (8.5-10.1) mg/dL Total Bilirubin (0.2-1.0) mg/dL AST (15-37) U/L ALT (16-63) U/L Alkaline Phosphatase (46-116) U/L Troponin I (0.00-0.056) ng/mL Total Protein (6.4-8.2) g/dl Albumin (3.4-5.0) g/dl Globulin gm/dL Albumin/Globulin Ratio (1-2) Med Orders - Current: Current Medications Aspirin (Ecotrin) 325 mg PO BID [facility] Last Admin: 11/24/16 21:23 Dose: 325 mg Bisacodyl (Dulcolax) 5 mg PO DAILY PRN PRN Reason: Constipation Last Admin: 11/24/16 08:06 Dose: 5 mg Cyclobenzaprine HCl (Flexeril) 10 mg PO TID PRN PRN Reason: Spasms Docusate Sodium (Colace) 100 mg PO BID [facility] Last Admin: 11/24/16 21:23 Dose: 100 mg Enalapril Maleate (Vasotec) 10 mg PO DAILY [facility] Last Admin: 11/24/16 08:10 Dose: 10 mg Famotidine (Pepcid) 20 mg PO BID [facility] Last Admin: 11/24/16 21:22 Dose: 20 mg Magnesium Hydroxide (Milk Of Magnesia) 30 ml PO BID PRN PRN Reason: Constipation Miscellaneous Information (Remove Patch) 1 ea TRDERM ONETIME [facility] Morphine Sulfate (Morphine) 2 mg IVPUSH Q2H PRN PRN Reason: Breakthrough Pain Multivitamins (Thera) 1 each PO WITHBREAKFAST [facility] Last Admin: 11/25/16 06:37 Dose: 1 each Ondansetron HCl (Zofran) 4 mg IVPUSH Q6H PRN PRN Reason: Nausea/Vomiting Last Admin: 11/23/16 15:46 Dose: 4 mg Oxycodone/Acetaminophen (Percocet 325-5 Mg) 1 - 2 tab PO Q4H PRN PRN Reason: Pain Last Admin: 11/25/16 06:37 Dose: 2 tab Chlorthalidone 25 Mg 0 each PO DAILY [facility] Last Admin: 11/24/16 08:10 Dose: Not Given Senna (Senna) 8.6 mg PO BID PRN PRN Reason: Constipation Discontinued Medications Bumetanide (Bumex) 1 mg IVPUSH ONETIME ONE Stop: 11/23/16 15:50 Last Admin: 11/23/16 16:11 Dose: 1 mg Bupivacaine HCl (Marcaine 0.25%) Confirm Administered Dose 30 ml .ROUTE .STK- MED ONE Stop: 11/23/16 09:52 Last Admin: 11/23/16 13:35 Dose: 30 ml Cefazolin Sodium (Ancef) Confirm Administered Dose 3 gm .ROUTE .STK-MED ONE Stop: 11/23/16 10:01 Cefazolin Sodium (Ancef) Confirm Administered Dose 2 gm .ROUTE .STK-MED ONE Stop: 11/23/16 09:52 Last Admin: 11/23/16 13:34 Dose: 2 gm Morphine Sulfate 8 mg/Epinephrine HCl 0.3 mg/Cefuroxime Sodium 750 mg/Ketorolac Tromethamine 30 mg/Sodium Chloride 27.9 ml 0 mg .XX ONETIME ONE Stop: 11/23/16 10:01 Last Admin: 11/23/16 13:35 Dose: 788.3 mg Diphenhydramine HCl (Benadryl) 25 mg IVPUSH Q6H PRN PRN Reason: pruritis Stop: 11/23/16 23:00 Last Admin: 11/23/16 17:03 Dose: 25 mg Lactated Ringer's (Ringers, Lactated) 1,000 mls @ 125 mls/hr IV ASDIRECTED [facility] Stop: 11/23/16 23:00 Last Admin: 11/23/16 08:50 Dose: 125 mls/hr Cefazolin Sodium/Dextrose 2 gm (/ Premix) 50 mls @ 100 mls/hr IV Q8H [facility] Stop: 11/24/16 10:29 Last Admin: 11/24/16 10:30 Dose: 100 mls/hr Lidocaine HCl (Xylocaine-Mpf 1%) Confirm Administered Dose 4 mls @ as directed .ROUTE .STK-MED ONE Stop: 11/23/16 10:01 Lactated Ringer's (Ringers, Lactated) Confirm Administered Dose 1,000 mls @ as directed .ROUTE .STK-MED ONE Stop: 11/23/16 11:11 Lactated Ringer's (Ringers, Lactated) Confirm Administered Dose 1,000 mls @ as directed .ROUTE .STK-MED ONE Stop: 11/23/16 11:35 Lactated Ringer's (Ringers, Lactated) Confirm Administered Dose 1,000 mls @ as directed .ROUTE .STK-MED ONE Stop: 11/23/16 12:43 Sodium Chloride (Normal Saline) 500 mls @ 999 mls/hr IV .BOLUS ONE Stop: 11/24/16 13:06 Last Admin: 11/24/16 12:51 Dose: 999 mls/hr Iodine (Iodine 2% Mild Tincture) Confirm Administered Dose 30 ml .ROUTE .STK- MED ONE Stop: 11/23/16 09:52 Last Admin: 11/23/16 13:30 Dose: 30 ml Ketamine HCl (Ketalar) Confirm Administered Dose 500 mg .ROUTE .STK-MED ONE Stop: 11/23/16 11:23 Lidocaine/Sodium Bicarbonate (Buffered Lidocaine 1% In Ns 8.4%) 0.25 ml .XX ONETIME PRN PRN Reason: Prior to IV Start Stop: 11/23/16 16:00 Last Admin: 11/23/16 08:49 Dose: 0.25 ml Midazolam HCl (Versed 1 Mg/Ml) Confirm Administered Dose 2 mg .ROUTE .STK-MED ONE Stop: 11/23/16 10:04 Midazolam HCl (Versed 1 Mg/Ml) Confirm Administered Dose 2 mg .ROUTE .STK-MED ONE Stop: 11/23/16 11:42 Morphine Sulfate (Morphine) Confirm Administered Dose 10 mg .ROUTE .STK-MED ONE Stop: 11/23/16 10:05 Morphine Sulfate (Duramorph Pf) Confirm Administered Dose 10 mg .ROUTE .STK-MED ONE Stop: 11/23/16 10:05 Naloxone HCl (Narcan) 0.1 mg IVPUSH Q5M PRN PRN Reason: Oversedation Stop: 11/23/16 12:16 Phenylephrine HCl (Phenylephrine In Ns 100 Mcg/Ml) Confirm Administered Dose 1 mg .ROUTE .STK-MED ONE Stop: 11/23/16 12:29 Propofol (Diprivan 20 Ml) Confirm Administered Dose 600 mg .ROUTE .STK-MED ONE Stop: 11/23/16 10:00 Propofol (Diprivan 20 Ml) Confirm Administered Dose 400 mg .ROUTE .STK-MED ONE Stop: 11/23/16 12:08 Propofol (Diprivan 20 Ml) Confirm Administered Dose 200 mg .ROUTE .STK-MED ONE Stop: 11/23/16 12:41 Propofol (Diprivan 20 Ml) Confirm Administered Dose 200 mg .ROUTE .STK-MED ONE Stop: 11/23/16 13:09 Propofol (Diprivan 20 Ml) Confirm Administered Dose 200 mg .ROUTE .STK-MED ONE Stop: 11/23/16 13:10 Propofol (Diprivan 20 Ml) Confirm Administered Dose 200 mg .ROUTE .STK-MED ONE Stop: 11/23/16 13:52 Scopolamine (Transderm-Scop) 1.5 mg TOP ONETIME ONE Stop: 11/23/16 16:48 Last Admin: 11/23/16 17:07 Dose: 1.5 mg Sodium Chloride (Saline Flush) 10 ml FLUSH ASDIRECTED PRN PRN Reason: Keep Vein Open Stop: 11/23/16 16:00 Tranexamic Acid (Cyklokapron) Confirm Administered Dose 1,000 mg .ROUTE .STK- MED ONE Stop: 11/23/16 09:52 Last Admin: 11/23/16 13:37 Dose: 1,000 mg - Exam Quality Assessment: No: supplemental oxygen General: alert, oriented, cooperative, no acute distress, other (Obese) HEENT: Pupils equal, Pupils reactive, EOMI, Mucous membr. moist/pink Neck: supple, trachea midline, no JVD Lungs: Normal Respiratory Effort, Decreased Breath Sounds Cardiovascular: Regular Rate, Regular Rhythm GI/Abdominal Exam: Normal Bowel Sounds, Non-Tender, No Organomegaly, No Distention, No Abnormal Bruit, No Mass (Male) Exam: Deferred Back Exam: Normal Inspection, Decreased Range of Motion Extremities: Normal Inspection, Normal Range of Motion, Non-Tender, No Pedal Edema, Normal Capillary Refill Peripheral Pulses: 2+: Dorsalis Pedis (L), Dorsalis Pedis (R) Skin: warm, dry, intact Neurological: no new focal deficit Psy/Mental Status: alert, normal affect, normal mood Consult PN Assessment/Plan POD#: 2 Problem List Initiated/Reviewed/Updated: Yes My Orders last 24 hours: My Active Orders 11/24/16 12:25 EKG 12 Lead [EKG Documentation Completion] [RC] STAT 11/24/16 12:28 Patient Status [ADT] Routine 11/26/16 17:00 Remove Patch 1 ea TRDERM ONETIME Plan: Assessment: Acute: S/p Right Total Knee Arthroplasty - Stable - DVT and Pain Management as per primary team Hx/o Chronic Hip Pain 2/2 OA - Pain Management as per primary team Resolved: Post Operative Urinary Retention - Received 4L LR in OR, output < 200 ml so far - Bumex 1mg IVP X1 now, had good urine output - Monitor urine output per protocol Post-Operative Nausea/Vomiting - PRN Anti-emisis - Scopolamine Patch and Benadryl IVP x 1 S/p Vasovagal Syncope - BP low, likely from BP meds and narcotic side effects - NS 500 ml X1 - Also check for EKG, CXR, Troponin and H/H S/p Post Operative Hypotension - He was somewhat a difficult case in OR - Lost almost a liter of blood - He need volume resuscitation as above Chronic: HTN HLD Obesity with BMI 39.9 Plan: He is now hemodynamically stable Routine AM labs Continue home meds Continue PT/OT IS q2 awake From Hospitalist standpoint, patient is doing just fine. We have no further recommendations but to continue current treatment. We are signing off his care. Please feel free to re-consult us for any questions or concerns. Again, thank you for allowing us to participate in the management of this patient.
[2016-11-25] MEDS: Docusate Sodium 100 MG Cap PO SCH (08:10)
[2016-11-25] MEDS: Aspirin 325 MG Tab.EC PO SCH (08:10)
[2016-11-25] MEDS: Famotidine 20 MG Tab PO SCH (08:10)
[2016-11-25] MEDS ORDERED: Acetaminophen/HYDROcodone 325-5 MG Tab PO PRN (08:11)
[2016-11-25] MEDS: Ondansetron 4 MG/2 ML SDV IVPUSH PRN (08:16)
[2016-11-25 12:10] VITALS: BP 135/55
--- NOTE | 2016-11-27 09:04 | PCM.DCSUM1 ---
Discharge Summary - Hospital Course Brief History: Zander is a 66 yo male right NILESH with Dr. Jaimes on 11-23-2016 . The procedure was completed under spinal anesthesia. The pt tolerated the procedure well and was admitted to the Medical-Surgical Unit. Medical management was provided by the Hospitalist service. The pt's Hospital course was remarkable for a near syncopal episode that was evaluated and treated by the Hospitalist service. The pt's Hgb on POD#1 was 15.0. On POD#1, 325mg BID was initiated for VTE prophylaxis. SCDs and TEDs were also ordered. A Mepilex dressing was placed at the incision site at the time of surgery and remained clean and dry. The pt participated in P.T. and O.T. and progressed well. He followed the NILESH precautions. The pt was allowed to WBAT. On POD#2, the pt was deemed appropriate to discharge to home with his . - Discharge Data Discharge Date: 11/25/16 Discharge Disposition: Home, Self-Care 01 Condition: Good - Patient Summary/Data Consults: Consultations 11/23/16 07:16 Consult to Physician [CONS] Routine OT Evaluation and Treatment [CONS] Routine 11/23/16 07:19 PT Evaluation and Treatment [CONS] Routine - Patient Instructions Diet: Usual Diet as Tolerated Activity: Apply Ice, As Tolerated, Elevate Extremity, Full Weight Bearing Activity, Other: Total hip precautions. Driving: Do Not Drive Showering/Bathing: May Shower Wound/Incision Care: Keep Operative Site/Wound Site Clean and Dry, Do NOT Change Dressing Notify Provider of: Fever, Increased Pain, Swelling and Redness, Drainage, Nausea and/or Vomiting Other/Special Instructions: Please get up and moving around every hour while awake. This helps to prevent blood clots. Please use your walker and have help as needed. Take a 325mg ASPIRIN TWICE DAILY. This also helps to prevent blood clots. The aspirin is being used for blood clot prevention and not for pain management, so please do not miss a dose of the medication. Do the exercises you were taught in the Hospital. Schedule for P.T. Use the pain medication as needed. The medication may cause drowsiness and constipation. Contact your primary care provider for instructions if you are constipated. You may use a stool softener like docusate sodium or Colace 100mg twice daily and/or a laxative like Miralax daily for constipation. Use the ice machine often. Elevate the limb to decrease swelling. Keep the Mepilex dressing in place until follow-up at the Clinic. Notify the Clinic if the dressing is saturated. Wear the CLAUDIA hose during the day and you may remove these at night. Eat a diet high in protein as this well help with healing. Schedule an appointment with your primary care provider for 'routine post-op care'. Call the Clinic with questions or concerns - [phone]. - Discharge Plan Prescriptions/Med Rec: Aspirin [Ecotrin] 325 mg PO BID #84 tab.ec Cyclobenzaprine [Flexeril] 10 mg PO TID PRN #40 tablet PRN Reason: Spasms Hydrocodone/Acetaminophen [Piseco 5-325 Tablet] 1 - 2 each PO Q6H #60 tablet Home Medications: Home Meds Chlorthalidone 25 mg PO DAILY 11/20/16 [History] Enalapril [Vasotec] 10 mg PO DAILY 11/20/16 [History] Bisacodyl [Dulcolax] 5 mg PO DAILY PRN #0 tablet 11/24/16 [Rx] Cyclobenzaprine [Flexeril] 10 mg PO TID PRN #40 tablet 11/24/16 [Rx] Docusate Sodium [Colace] 100 mg PO BID cap 11/24/16 [Rx] Famotidine [Pepcid] 20 mg PO BID tablet 11/24/16 [Rx] Multivitamins,Therapeutic [Thera] 1 each PO WITHBREAKFAST tablet 11/24/16 [Rx] Sennosides [Senna] 8.6 mg PO BID PRN #0 tablet 11/24/16 [Rx] Aspirin [Ecotrin] 325 mg PO BID #84 tab.ec 11/25/16 [Rx] Hydrocodone/Acetaminophen [Piseco 5-325 Tablet] 1 - 2 each PO Q6H #60 tablet [Rx] Patient Handouts: Total Hip Replacement, [id number], Hip Rehabilitation After Surgery, Total Hip Replacement, Care After, [id number] Referrals: Kb Ricketts MD [Physician] - 12/02/16 12:00 pm (Please arrive a few minutes early.) Kenyatta Boogie PA-C [Physician Pump Erector] - 12/01/16 8:45 am (First follow up appointment on 12/01/16 at 08:45 am. Second follow up appointment on 12/08/16 at 11 :00 am.) - Patient Data Vitals - Most Recent: Last Vital Signs Temp 98.1 F 11/25/16 11:41 Pulse 74 11/25/16 11:41 Resp 16 11/25/16 11:41 BP 135/55 L 11/25/16 11:41 Pulse Ox 95 11/25/16 11:41 Weight - Most Recent: 318 lb 9.6 oz Med Orders - Current: Current Medications Discontinued Medications Hydrocodone Bitart/Acetaminophen (Piseco 325-5 Mg) 1 - 2 tab PO Q4H PRN PRN Reason: Pain (moderate 4-6) Aspirin (Ecotrin) 325 mg PO BID [facility] Last Admin: 11/25/16 08:10 Dose: 325 mg Bisacodyl (Dulcolax) 5 mg PO DAILY PRN PRN Reason: Constipation Last Admin: 11/24/16 08:06 Dose: 5 mg Bumetanide (Bumex) 1 mg IVPUSH ONETIME ONE Stop: 11/23/16 15:50 Last Admin: 11/23/16 16:11 Dose: 1 mg Bupivacaine HCl (Marcaine 0.25%) Confirm Administered Dose 30 ml .ROUTE .STK- MED ONE Stop: 11/23/16 09:52 Last Admin: 11/23/16 13:35 Dose: 30 ml Cefazolin Sodium (Ancef) Confirm Administered Dose 3 gm .ROUTE .STK-MED ONE Stop: 11/23/16 10:01 Cefazolin Sodium (Ancef) Confirm Administered Dose 2 gm .ROUTE .STK-MED ONE Stop: 11/23/16 09:52 Last Admin: 11/23/16 13:34 Dose: 2 gm Morphine Sulfate 8 mg/Epinephrine HCl 0.3 mg/Cefuroxime Sodium 750 mg/Ketorolac Tromethamine 30 mg/Sodium Chloride 27.9 ml 0 mg .XX ONETIME ONE Stop: 11/23/16 10:01 Last Admin: 11/23/16 13:35 Dose: 788.3 mg Cyclobenzaprine HCl (Flexeril) 10 mg PO TID PRN PRN Reason: Spasms Diphenhydramine HCl (Benadryl) 25 mg IVPUSH Q6H PRN PRN Reason: pruritis Stop: 11/23/16 23:00 Last Admin: 11/23/16 17:03 Dose: 25 mg Docusate Sodium (Colace) 100 mg PO BID [facility] Last Admin: 11/25/16 08:10 Dose: 100 mg Enalapril Maleate (Vasotec) 10 mg PO DAILY [facility] Last Admin: 11/25/16 08:10 Dose: 10 mg Famotidine (Pepcid) 20 mg PO BID [facility] Last Admin: 11/25/16 08:10 Dose: 20 mg Lactated Ringer's (Ringers, Lactated) 1,000 mls @ 125 mls/hr IV ASDIRECTED [facility] Stop: 11/23/16 23:00 Last Admin: 11/23/16 08:50 Dose: 125 mls/hr Cefazolin Sodium/Dextrose 2 gm (/ Premix) 50 mls @ 100 mls/hr IV Q8H [facility] Stop: 11/24/16 10:29 Last Admin: 11/24/16 10:30 Dose: 100 mls/hr Lidocaine HCl (Xylocaine-Mpf 1%) Confirm Administered Dose 4 mls @ as directed .ROUTE .STK-MED ONE Stop: 11/23/16 10:01 Lactated Ringer's (Ringers, Lactated) Confirm Administered Dose 1,000 mls @ as directed .ROUTE .STK-MED ONE Stop: 11/23/16 11:11 Lactated Ringer's (Ringers, Lactated) Confirm Administered Dose 1,000 mls @ as directed .ROUTE .STK-MED ONE Stop: 11/23/16 11:35 Lactated Ringer's (Ringers, Lactated) Confirm Administered Dose 1,000 mls @ as directed .ROUTE .STK-MED ONE Stop: 11/23/16 12:43 Sodium Chloride (Normal Saline) 500 mls @ 999 mls/hr IV .BOLUS ONE Stop: 11/24/16 13:06 Last Admin: 11/24/16 12:51 Dose: 999 mls/hr Iodine (Iodine 2% Mild Tincture) Confirm Administered Dose 30 ml .ROUTE .STK- MED ONE Stop: 11/23/16 09:52 Last Admin: 11/23/16 13:30 Dose: 30 ml Ketamine HCl (Ketalar) Confirm Administered Dose 500 mg .ROUTE .STK-MED ONE Stop: 11/23/16 11:23 Lidocaine/Sodium Bicarbonate (Buffered Lidocaine 1% In Ns 8.4%) 0.25 ml .XX ONETIME PRN PRN Reason: Prior to IV Start Stop: 11/23/16 16:00 Last Admin: 11/23/16 08:49 Dose: 0.25 ml Magnesium Hydroxide (Milk Of Magnesia) 30 ml PO BID PRN PRN Reason: Constipation Midazolam HCl (Versed 1 Mg/Ml) Confirm Administered Dose 2 mg .ROUTE .STK-MED ONE Stop: 11/23/16 10:04 Midazolam HCl (Versed 1 Mg/Ml) Confirm Administered Dose 2 mg .ROUTE .STK-MED ONE Stop: 11/23/16 11:42 Miscellaneous Information (Remove Patch) 1 ea TRDERM ONETIME [facility] Morphine Sulfate (Morphine) 2 mg IVPUSH Q2H PRN PRN Reason: Breakthrough Pain Morphine Sulfate (Morphine) Confirm Administered Dose 10 mg .ROUTE .STK-MED ONE Stop: 11/23/16 10:05 Morphine Sulfate (Duramorph Pf) Confirm Administered Dose 10 mg .ROUTE .STK-MED ONE Stop: 11/23/16 10:05 Multivitamins (Thera) 1 each PO WITHBREAKFAST [facility] Last Admin: 11/25/16 06:37 Dose: 1 each Naloxone HCl (Narcan) 0.1 mg IVPUSH Q5M PRN PRN Reason: Oversedation Stop: 11/23/16 12:16 Ondansetron HCl (Zofran) 4 mg IVPUSH Q6H PRN PRN Reason: Nausea/Vomiting Last Admin: 11/25/16 08:16 Dose: 4 mg Oxycodone/Acetaminophen (Percocet 325-5 Mg) 1 - 2 tab PO Q4H PRN PRN Reason: Pain Last Admin: 11/25/16 06:37 Dose: 2 tab Chlorthalidone 25 Mg 0 each PO DAILY [facility] Last Admin: 11/25/16 08:11 Dose: Not Given Phenylephrine HCl (Phenylephrine In Ns 100 Mcg/Ml) Confirm Administered Dose 1 mg .ROUTE .STK-MED ONE Stop: 11/23/16 12:29 Propofol (Diprivan 20 Ml) Confirm Administered Dose 600 mg .ROUTE .STK-MED ONE Stop: 11/23/16 10:00 Propofol (Diprivan 20 Ml) Confirm Administered Dose 400 mg .ROUTE .STK-MED ONE Stop: 11/23/16 12:08 Propofol (Diprivan 20 Ml) Confirm Administered Dose 200 mg .ROUTE .STK-MED ONE Stop: 11/23/16 12:41 Propofol (Diprivan 20 Ml) Confirm Administered Dose 200 mg .ROUTE .STK-MED ONE Stop: 11/23/16 13:09 Propofol (Diprivan 20 Ml) Confirm Administered Dose 200 mg .ROUTE .STK-MED ONE Stop: 11/23/16 13:10 Propofol (Diprivan 20 Ml) Confirm Administered Dose 200 mg .ROUTE .STK-MED ONE Stop: 11/23/16 13:52 Scopolamine (Transderm-Scop) 1.5 mg TOP ONETIME ONE Stop: 11/23/16 16:48 Last Admin: 11/23/16 17:07 Dose: 1.5 mg Senna (Senna) 8.6 mg PO BID PRN PRN Reason: Constipation Sodium Chloride (Saline Flush) 10 ml FLUSH ASDIRECTED PRN PRN Reason: Keep Vein Open Stop: 11/23/16 16:00 Tranexamic Acid (Cyklokapron) Confirm Administered Dose 1,000 mg .ROUTE .STK- MED ONE Stop: 11/23/16 09:52 Last Admin: 11/23/16 13:37 Dose: 1,000 mg *Q Meaningful Use (DIS) - VTE *Q VTE Criteria *Q: - Stroke *Q Stroke Criteria *Q: - AMI *Q AMI Criteria *Q:
--- NOTE | 2016-11-29 21:24 | PCM.OPNOTE ---
- General Post-Op/Procedure Note Date of Surgery/Procedure: 11/23/16 Operative Procedure(s): right total hip arthroplasty Pre Op Diagnosis: right hip osteoarthrosis Post-Op Diagnosis: Same Anesthesia Technique: Local, MAC, Spinal Primary Surgeon: Fabrice Jaimes Anesthesia Provider: Mag wOen Compensation Director: Kenyatta Boogie Compensation Director: Agnes Anguiano EBBry in mLs: 900 Complications: None Condition: Good
--- NOTE | 2016-11-29 22:20 | OR ---
DATE OF OPERATION: 11/23/2016 SURGEON: Fabrice Jaimes MD OPERATION PERFORMED: Right total hip arthroplasty. PREOPERATIVE DIAGNOSIS: Right hip osteoarthrosis. POSTOPERATIVE DIAGNOSIS: Right hip osteoarthrosis. ANESTHESIA: Technique, local MAC with spinal. ANESTHESIA PROVIDER: Mag Owen. MANUFACTURING QUALITY MANAGER: Kenyatta Boogie PA-C and Agnes Anguiano LPN. ESTIMATED BLOOD LOSS: 900 mL. COMPLICATIONS: None. CONDITION: Stable. DESCRIPTION OF PROCEDURE: The patient was identified in the preop holding area. Proper site was marked and identified by the surgeon. The patient was taken back to the operating theater where after adequate anesthesia, the patient was placed in the left lateral decubitus position, which was difficult secondary to the patient's BMI. The axillary roll was placed and then pegs were then placed and were well padded. The patient's gluteal fold was found to be parallel to the floor. All bony prominences were well padded. Right hip was then sterilely prepped and draped in the usual sterile fashion. OR time-out was performed. The patient received 2 g IV Ancef. At this time, standard incision was made over the greater trochanter and this was taken down to the IT band and gluteal fascia, which was incised along the incisional length. The incision was a little bit bigger as we knew the patient had significant arthritis and it was going to be a more difficult case. The abductors were identified and protected. Piriformis tendon was identified and takedown of the short external rotators and piriformis as well as capsule was done all the way to the level of the lesser trochanter. This was very difficult as the patient had 0 internal rotation and was very difficult to visualize this at this time. The patient's hip was then dislocated after much trial, there was no fracture noted. The neck cut guide was then placed and the neck cut was then completed. The patient was noted to have significant tightness in the inferior capsule as well as all the muscle groups surrounding the hip. I did have to take down part of the vastus attachment on the superior acetabulum secondary to being significantly tight. The patient was also noted to have a significantly tight hip flexor and his greater troch hooked over the top at the visualization of the acetabular cup. Anterior posterior acetabular retractors were placed. I did have to take down part of the inferior capsule for visualization. Secondary to the patient's large greater trochanter as well as significant BMI, I did after ream him from posteriorly making sure to keep the hand anterior, otherwise, I was not able to see visualization pang the cup from the anterior position. With roughly neutral cup position to 10 degrees of anteversion, I was able to start reaming with a 49. I was able to ream up to a 58 mm cup. The 57 trial was found to have adequate fixation. At this time, 58 mm Tritanium acetabular cup was then selected and impacted into place. It was found to have adequate fixation. At this time, secondary to the patient's very tight hip flexors as well as decreased mobility, I did decide MDM components would be needed. At this time, the MDM 46 mm liner was then impacted into place. An attention was turned to the femur. Box chisel was used out laterally and starter awl was placed down the canal starting with a 0 broach, I was able to broach up to a size 7, which was found to be rotationally and vertically stable. At this time, with MDM trial components, it was found the patient has significant leg length discrepancy and was not stable up until we are at a +8. The patient at this time was found to be rotation and vertically stable as well as good stability throughout range of motion. At this time, this was dislocated with the use of bone hook and the implants were then opened. Size 7 Breana Accolate II stem was then impacted into place and MDM components with a 28 mm head +8 along with a 46 mm polyethylene cup was then constructed on the back table and then impacted into place. The hip was then relocated, 1 L dilute Betadine solution was then irrigated through the hip along with 2 L pulse lavage irrigation with Ancef. Periarticular injection was then completed, two #5 Ethibond suture was used for closure of the short external rotators and capsule, but it was found to be significantly tight as we did have to take down significant capsule. At this time #2 barbed suture was used for closure of the IT band and gluteal fascia, 2-0 Vicryl was used subcutaneously and Prineo was used for the skin. The patient tolerated the procedure well and was sent to PACU in stable condition. CODY /[id number]
== END 2016-11-25 12:30 | disposition home or self-care (01) | DRG 301 ==
LOC: JD.MS 08:28
PROVIDERS: ADMIT Orthopaedic Surgery; ATTEND Orthopaedic Surgery
PROC: 0SR9019 Replacement of Right Hip Joint with Metal Synthetic Substitute, Cemented, Open Approach (ICD-10-PCS; principal; 2016-11-23)
DX: M16.11 Unilateral primary osteoarthritis, right hip (principal); R33.9 Retention of urine, unspecified; R11.2 Nausea with vomiting, unspecified; I95.81 Postprocedural hypotension; I10 Essential (primary) hypertension; E78.2 Mixed hyperlipidemia; E78.00 Pure hypercholesterolemia, unspecified; M10.9 Gout, unspecified; E66.01 Morbid (severe) obesity due to excess calories; Z68.39 Body mass index [BMI] 39.0-39.9, adult; Z87.891 Personal history of nicotine dependence; Z79.82 Long term (current) use of aspirin; Z79.899 Other long term (current) drug therapy
CPT/HCPCS: 01214; 36415; 71010; 71010-26; 73501-26-RT; 73501-RT; 80053; 82962; 84484; 85018; 85025; 85610; 85730; 87641; 93005; 94762; 97110-GP; 97116-GP; 97162-GP; 97165-GO; 97530-GO; 97530-GP; 97535-GO; A9270-GY; C1776; J0171; J0690; J0697; J1200; J1885; J2250; J2270; J2405; J2704; J3490; J7040; J7120

== ENCOUNTER → 2020-09-23 | Day surgery (SDC) | payer BC, MEDICARE ==
[~2020-09-23] MED LIST changes: +Lidocaine 1% 0 ML ONE; +Lidocaine 1% 4 ML ONE; +Lidocaine 1%/Sod Bicarbonate in NS 8.4% 1 ML Syringe IDERM PRN; -Lidocaine 1%/Sod Bicarbonate in NS 8.4% 1 ML Syringe PRN; +Midazolam 1 MG/ML 2 ML SDV ONE; +Propofol 200 MG/20 ML SDV ONE; +fentaNYL 100 MCG/2 ML SDV ONE
--- NOTE | 2020-09-23 08:02 | PCM.PREANE ---
Preanesthetic Assessment - Procedure Proposed Procedure: Colonoscopy - Anesthesia/Transfusion/Family Hx Anesthesia History: Prior Anesthesia Without Reaction Family History of Anesthesia Reaction: No Transfusion History: No Prior Transfusion(s) Intubation History: Unknown - Review of Systems General: No Symptoms Pulmonary: Shortness of Breath (c), Cough Cardiovascular: No Symptoms Gastrointestinal: No Symptoms Neurological: No Symptoms Other: Reports: None - Physical Assessment NPO Status Date: 09/22/20 NPO Status Time: 23:00 Height: 1.85 m ASA Class: 3 Mental Status: Alert & Oriented x3 Airway Class: Mallampati = 2 Dentition: Reports: Edentulous (upper ), Missing Tooth/Teeth (lower jaw right and left ) Thyro-Mental Finger Breadths: 3 Mouth Opening Finger Breadths: 4 ROM/Head Extension: Full Lungs: Clear to Auscultation, Normal Respiratory Effort Cardiovascular: Regular Rate, Regular Rhythm - Lab Values: Laboratory Last Values POC Glucose 93 mg/dL (70-99) 09/23/20 07:32 - Allergies Allergies/Adverse Reactions: Allergies Allergy/AdvReac Type Severity Reaction Status Date / Time No Known Allergies Allergy Verified 09/22/20 15:36 - Blood Blood Available: No - Anesthesia Plan Pre-Op Medication Ordered: None - Acknowledgements Anesthesia Type Planned: MAC Pt an Appropriate Candidate for the Planned Anesthesia: Yes Alternatives and Risks of Anesthesia Discussed w Pt/Guardian: Yes Pt/Guardian Understands and Agrees with Anesthesia Plan: Yes PreAnesthesia Questionnaire HEENT History: Reports: Cataract, Impaired Vision Cardiovascular History: Reports: High Cholesterol, Hypertension Respiratory History: Reports: None Gastrointestinal History: Reports: Colon Polyp, Other (See Below) Other Gastrointestinal History: hematochezia Genitourinary History: Reports: Renal Calculus FREELANCE MAKEUP ARTIST History: Reports: None Musculoskeletal History: Reports: Arthritis, Gout, Other (See Below) Other Musculoskeletal History: R knee pain, gouty arthritis Neurological History: Reports: None Psychiatric History: Reports: None Endocrine/Metabolic History: Reports: Obesity/BMI 30+ Hematologic History: Reports: None Immunologic History: Reports: None Oncologic (Cancer) History: Reports: None Dermatologic History: Reports: None - Infectious Disease History Infectious Disease History: Reports: None - Past Surgical History Head Surgeries/Procedures: Reports: None HEENT Surgical History: Reports: Cataract Surgery Cardiovascular Surgical History: Reports: None Respiratory Surgical History: Reports: None GI Surgical History: Reports: Colonoscopy Male Surgical History: Reports: Ureteral Stent, Vasectomy Endocrine Surgical History: Reports: None Neurological Surgical History: Reports: None Musculoskeletal Surgical History: Reports: Hip Replacement, Other (See Below) Other Musculoskeletal Surgeries/Procedures:: elbow surgery Oncologic Surgical History: Reports: None Dermatological Surgical History: Reports: None - SUBSTANCE USE Tobacco Use Status *Q: Former Tobacco User Recreational Drug Use History: No - HOME MEDS Home Medications: Home Meds Chlorthalidone 12.5 mg PO DAILY 11/20/16 [History] Enalapril [Vasotec] 10 mg PO DAILY 11/20/16 [History] Aspirin 81 mg PO DAILY 09/22/20 [History] Colchicine 0.6 mg PO ASDIRECTED PRN 09/22/20 [History] Meloxicam [Mobic] 15 mg PO DAILY 09/22/20 [History] Rosuvastatin [Crestor] 10 mg PO DAILY 09/22/20 [History] allopurinoL [Zyloprim] 50 mg PO DAILY 09/22/20 [History] - CURRENT (IN HOUSE) MEDS Current Meds: Current Medications Lactated Ringer's (Ringers, Lactated) 1,000 mls @ 125 mls/hr IV ASDIRECTED [facility] Stop: 09/23/20 23:00 Lidocaine/Sodium Bicarbonate (Lidocaine 1%/Sod Bicarbonate In Ns 8.4% 1 Ml Sy ringe) 0.25 ml IDERM ONETIME PRN PRN Reason: Prior to IV Start Stop: 09/23/20 18:00 Sodium Chloride (Sodium Chloride 0.9% 10 Ml Syringe) 10 ml FLUSH ASDIRECTED PRN PRN Reason: Keep Vein Open Stop: 09/23/20 18:00 Discontinued Medications Lidocaine HCl (Xylocaine-Mpf 1%) Confirm Administered Dose 4 mls @ as directed .ROUTE .STK-MED ONE Stop: 09/23/20 07:20 Propofol (Propofol 200 Mg/20 Ml Sdv) Confirm Administered Dose 400 mg .ROUTE .STK-MED ONE Stop: 09/23/20 07:19
--- NOTE | 2020-09-23 09:51 | PCM48HPAN ---
Post Anesthesia Note - EVALUATION WITHIN 48HRS OF ANESTHETIC Vital Signs in Normal Range: Yes Patient Participated in Evaluation: Yes Respiratory Function Stable: Yes Airway Patent: Yes Cardiovascular Function Stable: Yes Hydration Status Stable: Yes Pain Control Satisfactory: Yes Nausea and Vomiting Control Satisfactory: Yes Mental Status Recovered: Yes Vital Signs: Last Vital Signs Temp 36.1 C 09/23/20 07:35 Pulse 93 09/23/20 07:35 Resp 20 09/23/20 07:35 BP 155/80 H 09/23/20 07:35 Pulse Ox
[2020-09-23 10:20] VITALS: BP 139/78; PULSE 78
--- NOTE | 2020-09-23 11:35 | PROC ---
DATE OF OPERATION: 09/23/2020 SURGEON: Beverly Martini MD PREOPERATIVE DIAGNOSES: 1. Prior history of colon polyps. 2. Family history of colon cancer in mother. POSTOPERATIVE DIAGNOSES: 1. Incomplete colonoscopy 2. Scattered diverticulosis in the sigmoid colon. 3. Grade 2 hemorrhoids. PROCEDURE: Colonoscopy to the transverse colon. ANESTHESIA: Monitored anesthesia care. COMPLICATIONS: None. INDICATIONS AND CONSENT: The patient is a 70-year-old male who has family history of colon cancer in his mother who was diagnosed at 72. The patient had a colonoscopy in 2013 where some polyps were found. The patient was asked to do a repeat colonoscopy in 5 years, but did not get to it until now. I saw the patient in my clinic. We discussed the risks, benefits, and alternatives, and informed consent was obtained. DESCRIPTION OF PROCEDURE: The patient was taken to the procedure room and placed in left lateral decubitus position. A time-out was performed and monitored anesthesia care was induced. We began the colonoscopy by perianal exam and digital rectal exam, which were unremarkable. Scope was inserted and advanced to the transverse colon. At this point, the scope was looping significantly and could not advance the scope anymore. We tried several maneuvers including abdominal pressure and supine positioning, but none of these helped to advance the scope past the transverse colon. We got through the mid transverse colon, but could not advance further because of severe looping of the colon despite maneuvering. Due to this, after trying several times and spending about 45 minutes trying to get to the end of the colon, we decided to stop the procedure at this juncture. We examined the rest of the colon from the mid transverse all the way out. There was some diverticulosis scattered in the sigmoid colon, and on retroflexion, there were hemorrhoids, but no polyps were found on this portion of the colon. This marked the end of the procedure. I discussed the findings and incompletion of the colonoscopy with the patient, and I will refer the patient to GI in [place] to attempt another colonoscopy in 3 to 6 months. MMODAL /[id number]
== END | disposition home or self-care (01) ==
LOC: JD.SDS 07:16
PROVIDERS: ATTEND Surgery
DX: Z12.11 Encounter for screening for malignant neoplasm of colon (principal); K57.30 Diverticulosis of large intestine without perforation or abscess without bleeding; K64.1 Second degree hemorrhoids; E78.5 Hyperlipidemia, unspecified; I10 Essential (primary) hypertension; E78.00 Pure hypercholesterolemia, unspecified; E66.9 Obesity, unspecified; Z86.010 Personal history of colon polyps; Z80.0 Family history of malignant neoplasm of digestive organs; Z79.899 Other long term (current) drug therapy; Z79.82 Long term (current) use of aspirin; Z87.891 Personal history of nicotine dependence; Z98.890 Other specified postprocedural states; Z68.41 Body mass index [BMI] 40.0-44.9, adult
CPT/HCPCS: 82947; G0105; J2704; J3010; J7120; 00812; J2250